=== PATIENT | male | born 1955 | race Caucasian/White ===

== ENCOUNTER 2017-11-25 00:05 | Observation (INO) | payer OTHER ==
[2017-11-25] MEDS ORDERED: BISACODYL (EC) 5 MG TAB PO (02:00)
[2017-11-25] MEDS ORDERED: LORAZEPAM 2 MG INJ IV ×2 (02:00→20:00)
[2017-11-25] MEDS ORDERED: DOCUSATE SODIUM 100 MG CAP PO (02:00)
[2017-11-25] MEDS ORDERED: GLUCOSE GEL 15 GRAM TUBE PO ×2 (02:00)
[2017-11-25] MEDS ORDERED: ACETAMINOPHEN 325 MG TAB PO (02:00)
[2017-11-25] MEDS ORDERED: GLUCOSE GEL 15 GRAM TUBE BUCCAL (02:00)
[2017-11-25] MEDS ORDERED: DEXTROSE 50% 50 ML SYRINGE IV ×2 (02:00)
[2017-11-25] MEDS ORDERED: MAGNESIUM HYDROXIDE 30ML CUP PO (02:00)
[2017-11-25] MEDS ORDERED: HYDROCODONE/APAP (5/325) TAB PO (02:00)
[2017-11-25] MEDS ORDERED: ONDANSETRON 4 MG INJ IV (02:00)
[2017-11-25] MEDS ORDERED: NACL 0.9% 3 ML SYG IV (02:00)
[2017-11-25] MEDS ORDERED: GLUCAGON 1 MG INJ IM (02:00)
[2017-11-25] MEDS: SOD CHLORIDE 0.9% 1,000 ML IV ×3 (02:21→23:16)
[2017-11-25] MEDS: FAMOTIDINE 20 MG TAB PO ×3 (02:26→21:01)
[2017-11-25 02:51] LABS: ADD UMIC YES; UR ASCORBIC ACID NEGATIVE (NEGATIVE); UR BILIRUBIN (Dip) NEGATIVE (NEGATIVE); UR BLOOD (Dip) 2+ mg/dL (NEGATIVE); UR CLARITY CLEAR (CLEAR); UR COLOR YELLOW (YELLOW); UR GLUCOSE (Dip) NEGATIVE (NEGATIVE); UR KETONES (Dip) NEGATIVE (NEGATIVE); UR LEUKOCYTE ESTERASE (Dip) NEGATIVE Leu/ul (NEGATIVE); UR NITRITE (Dip) NEGATIVE (NEGATIVE); UR RBC 0 /HPF (0-5); UR SPECIFIC GRAVITY (Dip) 1.012 (1.003-1.030); UR TOTAL PROTEIN (Dip) NEGATIVE (NEGATIVE); UR UROBILINOGEN (Dip) NEGATIVE (NEGATIVE); UR WBC 0 /HPF (0-5)
[2017-11-25 06:08] LABS: ADD MAN DIFF? NO
[2017-11-25 06:13] LABS: BASOPHILS % 0.4 % (0.0-2.0); EOSINOPHILS # 0.2 10^3/ul (0.0-0.5); EOSINOPHILS % 2.3 % (0.0-7.0); HEMATOCRIT 26.2 % (42.0-52.0); HEMOGLOBIN 8.3 g/dl (14.0-18.0); LYMPHOCYTES # 2.6 10^3/ul (0.8-2.9); LYMPHOCYTES % 35.4 % (15.0-51.0); MEAN CORPUSCULAR HEMOGLOBIN 27.7 pg (29.0-33.0); MEAN CORPUSCULAR HGB CONC 31.7 g/dl (32.0-37.0); MEAN CORPUSCULAR VOLUME 87.3 fl (82.0-101.0); MEAN PLATELET VOLUME 8.7 fl (7.4-10.4); MONOCYTE # 0.8 10^3/ul (0.3-0.9); NEUTROPHIL # 3.6 10^3/ul (1.6-7.5); NEUTROPHILS % 49.5 % (39.0-77.0); NUCLEATED RED BLOOD CELLS% 0.3 /100WBC (0.0-0.0); PLATELET COUNT 280 10^3/UL (140-415); RED CELL DISTRIBUTION WIDTH 17.3 % (11.5-14.5)
[2017-11-25 06:13] LABS: WHITE BLOOD COUNT 7.2 10^3/ul (4.8-10.8)
[2017-11-25 06:34] LABS: HEMOGLOBIN A1C 8.5 % (0-5.9)
[2017-11-25 06:40] LABS: ALANINE AMINOTRANSFERASE 15 IU/L (13-69); ALBUMIN 3.9 g/dl (3.3-4.9); ALKALINE PHOSPHATASE 55 IU/L (42-121); ANION GAP 11 (8-16); ASPARTATE AMINO TRANSFERASE 21 IU/L (15-46); BILIRUBIN,INDIRECT 0.5 mg/dl (0-1.1); BILIRUBIN,TOTAL 0.5 mg/dl (0.2-1.3); BLOOD UREA NITROGEN 12 mg/dl (7-20); CALCIUM 9.4 mg/dl (8.4-10.2); CARBON DIOXIDE 25 mmol/L (21-31); CHLORIDE 110 mmol/L (97-110); CHOL/HDL RATIO 7.4 RATIO; CHOLESTEROL 179 mg/dl (100-200); CREATININE 0.73 mg/dl (0.61-1.24); GLUCOSE 91 mg/dl (70-220); HDL CHOLESTEROL 24 mg/dl (30-78); LDL CHOLESTEROL,CALCULATED 109 mg/dl; MAGNESIUM 1.6 mg/dl (1.7-2.5); SODIUM 142 mmol/L (135-144); TOTAL PROTEIN 6.9 g/dl (6.1-8.1); TRIGLYCERIDES 231 mg/dl (0-149)
[2017-11-25 06:51] LABS: TROPONIN-I 0.056 ng/ml (0.000-0.120)
[2017-11-25 07:07] LABS: D-DIMER 4924.61 ng/ml (<460)
[2017-11-25 07:10] LABS: THYROID STIMULATING HORMONE 0.931 MIU/L (0.465-4.680)
[2017-11-25] MEDS: metFORMIN 850 MG TAB PO ×3 (07:55→17:34)
[2017-11-25] MEDS: ATENOLOL 25 MG TAB PO (08:53)
[2017-11-25] MEDS: LISINOPRIL 10 MG TAB PO (08:53)
[2017-11-25] MEDS: ENOXAPARIN 40 MG/0.4 ML SYG SC (09:12)
[2017-11-25] MEDS: MAGNESIUM OXIDE 400 MG TAB PO (10:30)
[2017-11-26] MEDS: metFORMIN 850 MG TAB PO (07:55)
[2017-11-26] MEDS: FAMOTIDINE 20 MG TAB PO (09:21)
[2017-11-26] MEDS: ENOXAPARIN 40 MG/0.4 ML SYG SC (09:23)
[2017-11-26] MEDS ORDERED: MEGESTROL 40 MG TAB PO (09:30)
[2017-11-26] MEDS: MEGESTROL (40 MG/ML) 10ML CUP PO (10:34)
[2017-11-26] MEDS: LEVETIRACETAM 500 MG TAB PO (16:11)
[2017-11-27] MEDS ORDERED: LEVETIRACETAM 500 MG TAB PO (09:00)
== END 2017-11-26 16:45 | disposition home or self-care (01) ==
LOC: TEL 00:05
PROVIDERS: Internal Medicine
DX: G40.909 Epilepsy, unspecified, not intractable, without status epilepticus (principal); I10 Essential (primary) hypertension; E11.9 Type 2 diabetes mellitus without complications; C79.31 Secondary malignant neoplasm of brain; I25.10 Atherosclerotic heart disease of native coronary artery without angina pectoris; Z95.1 Presence of aortocoronary bypass graft; E78.00 Pure hypercholesterolemia, unspecified; Z87.891 Personal history of nicotine dependence; Z85.118 Personal history of other malignant neoplasm of bronchus and lung; Z92.21 Personal history of antineoplastic chemotherapy; Z92.3 Personal history of irradiation; Z79.84 Long term (current) use of oral hypoglycemic drugs
CPT/HCPCS: 70553; 80053; 80061; 81001; 82962; 83036; 83735; 84443; 84484; 85025; 85378; 87081; 95819; 99217; G0378